=== PATIENT | female | born 1945 | race Caucasian/White ===

== ENCOUNTER 2022-03-29 13:17 | Inpatient (IN) ==
--- NOTE | 2022-03-29 13:19 | Emergency Department Note ---
HPI General Chief complaint: Extremity Injury, Lower Stated complaint: Rt hip pain Time Seen by Provider: 03/29/22 13:19 Source: patient Mode of arrival: ambulatory Limitations: no limitations History of Present Illness HPI Narrative: 76-year-old female with past medical history of CAD with a stent and hypertension presenting with right hip pain after fall. Patient was in the garden and tripped, falling onto her right side. Denies hitting her head or losing consciousness. She was unable to get up and currently has pain in her right hip that shoots down her right leg. Not on anticoagulation. She reports a history of right total knee replacement with an orthopedic physician in [place]. Denies numbness or weakness in the leg. No headache, vision changes, back pain, or other extremity pain. Related Data Allergies Allergy/AdvReac Type Severity Reaction Status Date / Time meperidine [From DEMEROL] Allergy Unknown SWELLING Verified 03/29/22 13:21 Review of Systems ROS ROS Narrative: Narrative: Constitutional: Denies fever ENT ED: Denies throat pain Cardiovascular: Denies chest pain Respiratory: Denies shortness of breath or cough Gastrointestinal: Denies abdominal pain, nausea or vomiting Genitourinary: Denies dysuria Musculoskeletal: Denies back pain Integumentary: Denies rash Neurological: Denies headache or dizziness Psychiatric: Denies anxiety Endocrine: Denies fatigue Hematological/Lymphatic: Denies easy bruising PFSH Narrative Patient History Narrative: Narrative: Medical/Surgical/Family History All Active Problems (Updated 03/29/22 @ 15:45 by Satya De Dios MD) CAD (coronary artery disease) (Acute) Essential hypertension (Acute) Fracture of femoral neck, right, closed (Acute) Exam Narrative Narrative: Narrative: General Limitations: no limitations General appearance: Present alert and other (Appears uncomfortable) Head Head: Present atraumatic and normocephalic Eye Eye: Present normal appearance, PERRL and EOMI; Absent scleral icterus, conjunctival injection or nystagmus ENT ENT: Present mucous membranes moist Neck Neck: Present normal inspection, full ROM and trachea midline; Absent tenderness Chest Chest: Present symmetric chest wall rise Respiratory Respiratory: Present normal lung sounds bilaterally; Absent respiratory distress, rales/crackles, wheezes, stridor or accessory muscle use Cardiovascular Cardiovascular: Present regular rate and normal rhythm; Absent systolic murmur or diastolic murmur Expanded Lower Extremity Hip/Pelvis: Present other (Tenderness over the lateral right hip with internal rotation.) Knee: Present normal inspection; Absent tenderness Ankle: Present normal inspection; Absent tenderness Neurovascular/Tendon: Present normal capillary refill; Absent pulse deficit, motor deficit or sensory deficit Back Back: Present normal inspection; Absent spinous process tenderness Neurological Neurological: Present alert, oriented X3 and CN II-XII intact; Absent motor sensory deficit Psychiatric Psychiatric: Present normal affect and normal mood Skin Skin: Present warm (WNL) and dry Course Consultations Consultation #1: Dr. Tony, orthopedic surgery Time: 15:25 Consultation #2: Dr. Whitley, hospitalist Time: 15:35 Vital Signs Vital signs: Vital Signs Temperature 97.2 F 03/29/22 13:17 Pulse Rate 81 03/29/22 13:17 Respiratory Rate 18 03/29/22 13:17 Pulse Oximetry (%) 96 03/29/22 13:17 Oxygen Delivery Method 03/29/22 13:17 Temperature 97.2 F 03/29/22 13:17 Pulse Rate 82 03/29/22 15:31 Respiratory Rate 18 03/29/22 13:17 Blood Pressure 133/80 03/29/22 15:31 Pulse Oximetry (%) 96 03/29/22 15:31 Oxygen Delivery Method 03/29/22 14:41 Oxygen Flow Rate (L/min) 4 03/29/22 14:41 [facility] Narrative Medical decision making narrative: 76-year-old female presenting with right hip pain after a fall. Not on anticoagulation and no other injuries. Sub-anesthetic dose of ketamine and 4mg IV morphine given for pain. Will obtain x-rays and reevaluate. X-ray shows an acute right femoral neck fracture. Labs appear stable, EKG with no ischemic changes. Chest x-ray with no acute findings. Patient continued to have severe hip pain so she was given 0.5 mg of IV Dilaudid. Her saturations subsequently dropped into the 80s so she was placed on O2 via nasal cannula. She remains awake, alert, and hemodynamically stable. I spoke with Dr. Tony of orthopedics who will consult on the patient. Patient endorsed to Dr. Whitley for admission. Lab Data Lab results reviewed: Yes I reviewed the patient's lab results. Result diagrams: 03/29/22 13:40 03/29/22 13:40 Labs: Lab Results 03/29/22 03/29/22 Range/Units 13:40 13:40 WBC 9.8 (4.5-11.0) K/mcL RBC 4.47 (3.59-5.38) M/mcL Hgb 14.0 (11.2-15.7) g/dL Hct 44.0 (34.1-44.9) % MCV 98.4 (80.0-100.0) fL MCH 31.3 (26.0-34.0) pg MCHC 31.8 (31.0-36.0) g/dL RDW 12.1 (11.5-14.5) % Plt Count 225 (140-440) K/mcL MPV 11.0 H (7.4-10.4) fL Immature Gran % (Auto) 0.5 (0.0-0.5) % Neut % (Auto) 75.0 (38.0-78.0) % Lymph % (Auto) 16.9 (15.5-49.0) % [place] % (Auto) 7.0 (1.0-12.0) % Eos % (Auto) 0.4 (0.0-7.0) % Baso % (Auto) 0.2 (0.0-2.0) % Lymph # (Auto) 1.65 (1.50-4.80) K/mcL [place] # (Auto) 0.69 (0.10-0.90) K/mcL Eos # (Auto) 0.04 (0.00-0.70) K/mcL Baso # (Auto) 0.02 (0.00-0.30) K/mcL Immature Gran # 0.05 (0.00-0.05) K/mcl Absolute Neutrophils 7.39 (1.80-8.00) K/mcL Sodium 140 (133-145) mmol/L Potassium 3.8 (3.3-5.1) mmol/L Chloride 107 (96-108) mmol/L Carbon Dioxide 21 L (22-30) mmol/L Anion Gap 12.0 (8.0-16.0) BUN 9 (8-23) mg/dL Creatinine 0.8 (0.6-1.1) mg/dL GFR Calculation 71 Glucose 109 H (70-105) mg/dL Calcium 9.0 (8.6-10.4) mg/dL Total Bilirubin 0.8 (0.1-1.0) mg/dL AST 25 (<32) U/L ALT 19 (<40) U/L Alkaline Phosphatase 84 (39-117) U/L Total Protein 6.3 (5.9-8.4) gm/dL Albumin 4.1 (3.2-5.2) gm/dL Globulin 2.2 (2.2-3.7) gm/dL Albumin/Globulin Ratio 1.9 (1.0-2.3) Radiology Data Radiology results reviewed: Yes I reviewed the patient's radiology results. Radiology results narrative: Ordering Physician:Satya De Dios M.D. Date of Service:03/29/22 Procedure(s):XR hip RT comp 2VW HISTORY: Right hip pain FINDINGS: There is an acute transverse fracture of the femoral neck. There is varus angulation. The shaft of the femur is retracted proximally. The hip joint space is normal in width and alignment and there is no underlying arthritis. Left hip is normal. There is moderate arthritis in the facet joints at L4-5. Atherosclerotic plaques are seen in the aorta and iliac arteries. IMPRESSION: Acute right femoral neck fracture Interpreted and Authenticated by: Akbar Monsalve 03/29/22 Ordering Physician:Satya De Dios M.D. Date of Service:03/29/22 Procedure(s):XR chest 1V portable HISTORY: Preop to repair fractured right hip FINDINGS: The lungs are clear and normally expanded. There is no pneumonia, mass or congestive heart failure. Heart size is normal. Aorta is mildly tortuous and there is a moderate amount of plaque in the aortic arch. Comparison with the prior exam from 02/20/13 shows little change except for progression of the atherosclerosis in the aorta. IMPRESSION: Normal exam Interpreted and Authenticated by: Akbar Monsalve 03/29/22 EKG Data EKG #1: EKG attestation: Yes I reviewed and interpreted this EKG. and Yes There are no EKG findings of acute coronary syndrome EKG results narrative: Sinus rhythm at [address] elevation or depression Interpretation: no acute changes Discharge Plan Patient/Caregiver Discharge Instructions Pt seen by CARDIOTHORACIC ICU RN/PA only: No Clinical Impression: Fracture of femoral neck, right, closed Patient Disposition: Xfer As Inpt ([facility]) Condition: Fair Follow up with: Tarsha Her ARNP [Primary Care Provider] -
[2022-03-29] MEDS ORDERED: morphine 4 MG/ML VIAL IV ONE (13:29)
[2022-03-29] MEDS ORDERED: KETAMINE 10 MG/ML ML IV ONE (13:29)
[2022-03-29] MEDS ORDERED: LORazepam 2 MG/ML VIAL IV ONE (14:00)
[2022-03-29 14:09] LABS: Basophils # (Auto) 0.02 K/mcL (0.00-0.30); Basophils % (Auto) 0.2 % (0.0-2.0); Eosinophils # (Auto) 0.04 K/mcL (0.00-0.70); Eosinophils % (Auto) 0.4 % (0.0-7.0); Lymphocytes # (Auto) 1.65 K/mcL (1.50-4.80); Lymphocytes % (Auto) 16.9 % (15.5-49.0); Mean Cell Volume 98.4 fL (80.0-100.0); Mean Corpuscular HGB Conc 31.8 g/dL (31.0-36.0); Monocytes # (Auto) 0.69 K/mcL (0.10-0.90); Platelet Count 225 K/mcL (140-440); RBC 4.47 M/mcL (3.59-5.38); Red Cell Distribution Width 12.1 % (11.5-14.5); WBC 9.8 K/mcL (4.5-11.0)
[2022-03-29] MEDS ORDERED: HYDROmorphone 1 MG/ML SYRINGE IV ONE (14:25)
[2022-03-29 14:31] LABS: ALT/SGPT 19 U/L (<40); AST/SGOT 25 U/L (<32); Albumin 4.1 gm/dL (3.2-5.2); Albumin/Globulin Ratio 1.9 (1.0-2.3); Alkaline Phosphatase 84 U/L (39-117); Bilirubin,Total 0.8 mg/dL (0.1-1.0); Blood Urea Nitrogen 9 mg/dL (8-23); Carbon Dioxide 21 mmol/L (22-30); Chloride 107 mmol/L (96-108); Globulin 2.2 gm/dL (2.2-3.7); Glomerular Filtration Rate 71; Glucose 109 mg/dL (70-105)
--- NOTE | 2022-03-29 14:34 | XRay Report ---
HISTORY: Right hip pain FINDINGS: There is an acute transverse fracture of the femoral neck. There is varus angulation. The shaft of the femur is retracted proximally. The hip joint space is normal in width and alignment and there is no underlying arthritis. Left hip is normal. There is moderate arthritis in the facet joints at L4-5. Atherosclerotic plaques are seen in the aorta and iliac arteries. IMPRESSION: Acute right femoral neck fracture Interpreted and Authenticated by: Akbar Monsalve 03/29/22
--- NOTE | 2022-03-29 14:35 | XRay Report ---
HISTORY: Preop to repair fractured right hip FINDINGS: The lungs are clear and normally expanded. There is no pneumonia, mass or congestive heart failure. Heart size is normal. Aorta is mildly tortuous and there is a moderate amount of plaque in the aortic arch. Comparison with the prior exam from 02/20/13 shows little change except for progression of the atherosclerosis in the aorta. IMPRESSION: Normal exam Interpreted and Authenticated by: Akbar Monsalve 03/29/22
--- NOTE | 2022-03-29 15:42 | Internal Med History&Physical ---
HPI History of Present Illness Patient information: Note initiated : 03/29/22 at 3:35 pm Service Date, if different from initiated Date: [] Patient: Pérez Gr a 76 y/o F admitted on for Rt hip pain. Chief Complaint: [] Chief complaint: fall History of present illness: Ms. Gr is a 76 year old F history of CAD status post 1 stent placement, essential hypertensions, presenting with mechanical fall. Earlier today when she was tightening a post in her house, she misstepped and fell with landing on her right hip. She used her right hand to protect her head so no head injury was reported. She denies any chest pain palpitations shortness of breath or loss of consciousness. She was complaining of 10 out of 10 sharp and dull constant pain radiating from her right hip to the right knee all the way to the right ankle. The pain was reduced to 5 out of 10 after ketamine was given in the ED. Orthopedic surgeons Dr. Tony was consulted who plans to take patient to the OR this evening. Constitutional Constitutional: Absent chills, excessive sweating, fatigue, fever(s) or weakness EENT Eyes: Absent blurry vision, change in vision, loss of vision or other visual disturbances Ears: Absent decreased hearing or tinnitus Nose, mouth and throat: Absent abnormal hearing, dry mouth, headache(s), nasal congestion or sore throat Cardiovascular Cardiovascular: Absent chest pain, chest pain at rest, edema, irregular heart rhythm or palpatations Respiratory Respiratory: Absent cough, dyspnea or wheezing Gastrointestinal Gastrointestinal: Absent abdominal pain, constipation, diarrhea, nausea or vomiting Musculoskeletal Musculoskeletal: Absent back pain, deformity, limited range of motion, muscle cramps, muscle weakness or numbness Additional comments: Right hip pain Integumentary Integumentary: Absent lesions, rash or wounds Neurological Neurological: Absent focal weakness, headache(s) or numbness Psychiatric Psychiatric: Absent anxiety, depression or hallucinations PFSH PFSH All Active Problems (Updated 03/29/22 @ 15:39 by Griffin Whitley MD) CAD (coronary artery disease) (Acute) Essential hypertension (Acute) Fracture of femoral neck, right, closed (Acute) MEDS/ALLERGIES Home Medications and Allergies Allergies Allergy/AdvReac Type Severity Reaction Status Date / Time meperidine [From DEMEROL] Allergy Unknown SWELLING Verified 03/29/22 13:21 EXAM Constitutional Vitals: Temp Pulse Resp BP Pulse Ox O2 Del Method O2 Flow Rate 36.2 C 83 18 141/85 82 L 4 03/29/22 13:17 03/29/22 14:35 03/29/22 13:17 03/29/22 14:35 03/29/22 14:39 03/29/22 14:41 03/29/22 14:41 General appearance: cooperative and no acute distress Head Head exam: Present atraumatic and normocephalic Eye Eye exam: Present EOMI and PERRL ENT ENT exam: Present mucous membranes moist, normal exam and normal external ear exam Neck Neck exam: Present normal inspection; Absent lymphadenopathy, tenderness or thyromegaly Respiratory Respiratory exam: Absent accessory muscle use, respiratory distress or wheezes Cardiovascular Cardiovascular exam: Present normal rate and rhythm; Absent JVD GI/Abdominal GI/Abdominal exam: Present normal bowel sounds and soft; Absent organomegaly or tenderness Extremities Exam Extremities exam: Present normal capillary refill, normal inspection and tenderness; Absent full ROM Additional comments: Active and passive ROMs of the right hip limited by pain Tenderness to palpation Neurological Exam Neurological exam: Present alert, CN II-XII intact and oriented X3; Absent motor sensory deficit Psychiatric Psychiatric exam: Present normal affect and normal mood; Absent anxious or depressed Skin Skin exam: Present dry and intact DATA Data Completed and Pending Labs: Labs from last 24 hours 03/29/22 03/29/22 13:40 13:40 WBC 9.8 RBC 4.47 Hgb 14.0 Hct 44.0 MCV 98.4 MCH 31.3 MCHC 31.8 RDW 12.1 Plt Count 225 MPV 11.0 H Immature Gran % (Auto) 0.5 Neut % (Auto) 75.0 Lymph % (Auto) 16.9 [place] % (Auto) 7.0 Eos % (Auto) 0.4 Baso % (Auto) 0.2 Lymph # (Auto) 1.65 [place] # (Auto) 0.69 Eos # (Auto) 0.04 Baso # (Auto) 0.02 Immature Gran # 0.05 Absolute Neutrophils 7.39 Sodium 140 Potassium 3.8 Chloride 107 Carbon Dioxide 21 L Anion Gap 12.0 BUN 9 Creatinine 0.8 GFR Calculation 71 Glucose 109 H Calcium 9.0 Total Bilirubin 0.8 AST 25 ALT 19 Alkaline Phosphatase 84 Total Protein 6.3 Albumin 4.1 Globulin 2.2 Albumin/Globulin Ratio 1.9 A/P Assessment and plan (1) Fracture of femoral neck, right, closed: Status: Acute (2) Essential hypertension: Status: Acute (3) CAD (coronary artery disease): Status: Acute Narrative A/P Narrative: Assessment and Plans: 1. Right femoral neck fracture, closed: Inpatient med surg Orthopedic surgeons Dr. Tony was consulted who plans to take patient to the OR this evening NPO and bedrest NS@100cc/hr Tylenol PRN fever or mild pain Oxycodone PRN moderate pain Morphine IV PRN severe pain Physical therapy Occupational therapy 2. h/o CAD: Hold antiplatelets/anticoagulants in preparation for surgery for her hip fracture 3. Essential HTN: Control right hip pain, see #1 Hydralazine 10mg IV q4-6hr PRN SBP>=180 and/or DBP>=110mmHg GI ppx: not currently indicated DVT ppx: SCDs Code status: Full Prognosis: stable Disposition: inpatient med surg; PT OT Time Spent With Patient Time: Total time spent is greater than 50% in coordination of care (as documented) at patient's floor/unit and/or counseling patient: Total time spent with greater than 50% in coordination of care (as documented) at patient's floor/unit and/or counseling patient:: 50 - 70 minutes
[2022-03-29] MEDS ORDERED: METHOCARBAMOL 1,000 MG/10 ML VIAL IV ONE (15:49)
[2022-03-29] MEDS ORDERED: ONDANSETRON 4 MG/2 ML VIAL IV ONE (15:49)
[2022-03-29] MEDS ORDERED: HYDROmorphone 0.5 MG/0.5 ML SYRINGE IV ONE (16:10)
--- NOTE | 2022-03-29 16:25 | Consultation ---
DATE OF CONSULTATION: 03/29/2022 CHIEF COMPLAINT: Right hip pain. HISTORY OF PRESENT ILLNESS: This is a 76-year-old female who presents to the emergency department with complaint of right hip pain. The patient reports a fall earlier today, where she tripped over a hose. She denies any syncope or dizziness prior to her fall and denies any other associated injuries. She does have tenderness in the hip radiating to her anterior thigh. REVIEW OF SYSTEMS: A 10-point review of systems was reviewed and negative other than what is stated in the HPI. ALLERGIES: MEPERIDINE, her reaction is swelling. PAST MEDICAL HISTORY: Coronary artery disease, hypertension. MEDICATIONS: Aspirin 81 mg daily. PHYSICAL EXAMINATION: VITAL SIGNS: Blood pressure 141/85, pulse 83, respirations 18, temperature is 36.2 degrees Celsius, pulse ox 82% on 4 liters of oxygen. HEAD: Atraumatic, normocephalic. ENT: Pupils are equal, round and reactive to light and accommodation. ENT is otherwise unremarkable. NECK: Supple, without tenderness or lymphadenopathy. CHEST: Lungs were clear to auscultation bilaterally without any wheezes, rhonchi, rales. HEART: Regular rate and rhythm without murmur. EXTREMITIES: The right lower extremity is externally rotated and shortened on inspection. She does have diffuse swelling throughout the hip without any other deformity, ecchymosis or erythema present. Passive and active range of motion of the right hip is limited due to severe tenderness in the hip. There is tenderness in the groin posterolaterally throughout the hip on palpation. Right lower extremity is otherwise neurovascularly intact. NEUROLOGIC: The patient is alert and oriented x3, without any focal deficits. IMAGING: Radiographs of the right hip reveal a right displaced femoral neck fracture. PLAN: After discussing with the patient treatment options, we will plan to proceed with a right hip hemiarthroplasty. Risks, complications and possible limitations were discussed with the patient. She would like to proceed with surgery. Dr. Tony was consulted and agrees with this plan. The patient will be admitted for operative treatment of the right hip fracture and likely will stay with us for 1 to 2 days. She will also be followed by Dr. Griffin Whitley throughout her stay, as well as Orthopedics. The patient agrees with this plan and her questions were addressed. RSM:nando Job ID: [id number] Doc ID: [id number] Roger Vaughan PA-C
[2022-03-29] MEDS ORDERED: ACETAMINOPHEN 325 MG TABLET PO PRN (17:43)
[2022-03-29] MEDS ORDERED: 0.9 % SODIUM CHLORIDE 1,000 ML IV SCH (17:43)
[2022-03-29] MEDS ORDERED: oxyCODONE HCL 5 MG TABLET PO PRN (17:43)
[2022-03-29] MEDS ORDERED: IPRATROPIUM/ALBUTEROL 3 ML AMPUL.NEB NEB PRN ×2 (17:43→19:08)
[2022-03-29] MEDS ORDERED: morphine 4 MG/ML VIAL IV PRN (17:43)
[2022-03-29] MEDS ORDERED: traZODone HCL 50 MG TABLET PO PRN (17:43)
[2022-03-29] MEDS ORDERED: ONDANSETRON 4 MG/2 ML VIAL IV PRN ×2 (17:43→19:08)
[2022-03-29] MEDS ORDERED: hydrALAZINE 20 MG/ML VIAL IV PRN (17:43)
[2022-03-29] MEDS ORDERED: LIDOCAINE HCL/PF 100 MG/5 ML SYRINGE IV ONE (18:30)
[2022-03-29] MEDS ORDERED: ceFAZolin 2 GM in DEXTROSE 5% IN WATER 50 ML IV SCH ×2 (18:30→19:45)
[2022-03-29] MEDS ORDERED: ONDANSETRON 4 MG/2 ML VIAL ONE (18:30)
[2022-03-29] MEDS ORDERED: DEXAMETHASONE 10 MG/ML VIAL ONE (18:30)
[2022-03-29] MEDS ORDERED: KETAMINE 50 MG/ML Syringe (ANEST) IV ONE (18:30)
[2022-03-29] MEDS ORDERED: MAGNESIUM SULFATE 2 GM/50 ML BAG IV ONE (18:30)
[2022-03-29] MEDS ORDERED: PROPOFOL 200 MG/20 ML VIAL IV ONE (18:30)
[2022-03-29] MEDS ORDERED: ceFAZolin 1 GM VIAL ONE (18:38)
[2022-03-29] MEDS ORDERED: PROMETHAZINE 25 MG/ML VIAL IV PRN (19:08)
[2022-03-29] MEDS ORDERED: fentaNYL 100 MCG/2 ML VIAL IV PRN (19:08)
[2022-03-29] MEDS ORDERED: LACTATED RINGERS 250 ML IV PRN (19:08)
[2022-03-29] MEDS ORDERED: ACETAMINOPHEN 1,000 MG/100 ML BAG IV ONE ×2 (19:08→20:03)
[2022-03-29] MEDS ORDERED: NALOXONE HCL 0.4 MG/ML VIAL IV PRN (19:08)
[2022-03-29] MEDS ORDERED: diphenhydrAMINE 50 MG/ML VIAL IV PRN (19:08)
[2022-03-29] MEDS ORDERED: LACTATED RINGERS 1,000 ML IV SCH (19:15)
[2022-03-29] MEDS ORDERED: MAGNESIUM HYDROXIDE 30 ML ORAL.SUSP PO PRN (19:32)
[2022-03-29] MEDS ORDERED: BISACODYL 10 MG SUPP.RECT PR PRN (19:32)
[2022-03-29] MEDS ORDERED: POLYETHYLENE GLYCOL 3350 17 GM PACKET PO PRN (19:32)
[2022-03-29] MEDS ORDERED: FLEETS ADULT ENEMA PR PRN (19:32)
[2022-03-29] MEDS ORDERED: ROPIVACAINE HCL/PF 20 ML VIAL IJ ONE (19:46)
[2022-03-29] MEDS: DEXTROSE 5%-1/2NS 1,000 ML IV SCH (20:50)
[2022-03-29] MEDS ORDERED: DOCUSATE SODIUM 100 MG CAPSULE PO SCH (21:00)
[2022-03-29] MEDS ORDERED: SENNOSIDES 1 TABLET PO SCH (21:00)
[2022-03-29] MEDS: DOCUSATE SODIUM 100 MG CAPSULE PO SCH (21:11)
[2022-03-29] MEDS ORDERED: 0.9 % SODIUM CHLORIDE 10 ML SYRINGE IV SCH (22:00)
[2022-03-29] MEDS: SENNOSIDES 1 TABLET PO SCH (22:11)
[2022-03-29] MEDS: ASPIRIN 81 MG TAB.CHEW PO SCH (22:11)
[2022-03-29] MEDS: 0.9 % SODIUM CHLORIDE 10 ML SYRINGE IV SCH (22:12)
[2022-03-29] MEDS: HYDROCODONE/APAP 7.5/325MG TABLET PO PRN (22:47)
[2022-03-30] MEDS: ceFAZolin 1 GM VIAL IV SCH ×2 (02:15→10:11)
[2022-03-30] MEDS: ONDANSETRON 4 MG ODT TABLET SL PRN ×3 (02:32→16:56)
[2022-03-30] MEDS: 0.9 % SODIUM CHLORIDE 10 ML SYRINGE IV SCH ×3 (04:13→20:30)
[2022-03-30] MEDS: HYDROCODONE/APAP 7.5/325MG TABLET PO PRN ×4 (04:16→20:28)
[2022-03-30 06:15] LABS: Basophils # (Auto) 0.01 K/mcL (0.00-0.30); Basophils % (Auto) 0.1 % (0.0-2.0); Eosinophils # (Auto) 0 K/mcL (0.00-0.70); Eosinophils % (Auto) 0 % (0.0-7.0); Hematocrit 39.7 % (34.1-44.9); Hemoglobin 12.6 g/dL (11.2-15.7); Lymphocytes # (Auto) 0.67 K/mcL (1.50-4.80); Lymphocytes % (Auto) 4.8 % (15.5-49.0); Mean Cell Volume 98.3 fL (80.0-100.0); Mean Corpuscular HGB Conc 31.7 g/dL (31.0-36.0); Mean Platelet Volume 11.8 fL (7.4-10.4); Monocytes # (Auto) 0.39 K/mcL (0.10-0.90); Monocytes % (Auto) 2.8 % (1.0-12.0); Neutrophils % (Auto) 91.9 % (38.0-78.0); Platelet Count 201 K/mcL (140-440); RBC 4.04 M/mcL (3.59-5.38); Red Cell Distribution Width 12.1 % (11.5-14.5)
[2022-03-30 06:40] LABS: ALT/SGPT 17 U/L (<40); AST/SGOT 23 U/L (<32); Albumin 3.6 gm/dL (3.2-5.2); Albumin/Globulin Ratio 1.7 (1.0-2.3); Alkaline Phosphatase 77 U/L (39-117); Bilirubin,Total 0.4 mg/dL (0.1-1.0); Blood Urea Nitrogen 7 mg/dL (8-23); Calcium 8.1 mg/dL (8.6-10.4); Carbon Dioxide 20 mmol/L (22-30); Chloride 103 mmol/L (96-108); Globulin 2.1 gm/dL (2.2-3.7); Glomerular Filtration Rate 71; Glucose 191 mg/dL (70-105)
--- NOTE | 2022-03-30 06:51 | Brief Operative Note ---
Brief Operative Note Date of procedure: 03/30/22 Pre-op diagnosis: Right hip fracture Post-op diagnosis: same Procedure: hemiarthroplasty Grafts/Implants: Yes Anesthesia: GETA Findings: stable hip Complications: none Surgeon: Reynold Tony Coffee Taster: Roger Vaughan Estimated blood loss (cc): 200 Specimens Removed/Pathology: none sent Condition: stable Operative Note Operative Note: Name of the operating practitioner/proceduralist: [Surgeon] Assistants: [medical assistant secretary] Procedure performed: [Procedure] Preoperative diagnosis: [pre-op dx] Postoperative diagnosis: [Post-op dx] Findings: [detail] Specimens removed: [none] Estimated blood loss (cc): [#] Any complications: [details] Detailed account of the findings at surgery: [details] Details of the surgical technique: [details]
--- NOTE | 2022-03-30 06:52 | General Surgery Progress Note ---
SUBJECTIVE Subjective Patient information: Note initiated : 03/30/22 at 6:51 am Service Date, if different from initiated Date: [] Patient: Pérez Gr 76 y/o F admitted on 03/29/22 for Rt hip pain. Chief Complaint: [] Principal diagnosis: hip fracture Constitutional Vitals: Vital Signs Temp Pulse Resp BP Pulse Ox O2 Del Method O2 Flow Rate 97.2 F 75 16 125/71 92 2 03/30/22 02:50 03/30/22 02:50 03/30/22 02:50 03/30/22 02:50 03/30/22 04:24 03/30/22 04:24 03/30/22 02:50 Period Temp Pulse Resp BP Sys/Campos Pulse Ox O2 Del Method O2 Flow Rate Last 24 Hr 96.8 F-98.0 F 61-96 11-24 87-173/49-118 82-99 Nasal Cannula- Room Air 2-6 Intake and Output 03/29/22 03/30/22 03/30/22 21:59 05:59 13:59 Intake Total 2049 120 Output Total 100 600 Balance 1950 -480 Weight 171 lb 8 oz Intake & Output: Intake & Output 03/29/22 03/30/22 03/30/22 21:59 05:59 13:59 Intake Total 2049 120 Output Total 100 600 Balance 1950 -480 Weight 171 lb 8 oz Intake: IV 150 Ancef 2 gm In Dextrose 5% in 50 Water 50 ml @ 100 mls/hr IV PREOP IVETTE Rx#:[id number] Oral 120 IV - Manual Only 1900 Output: Void Amount 600 Estimated Blood Loss 100 Other: Urine Appearance Clear Urine Color Bright Yellow Urine Odor Normal Extremities Exam Extremities exam: Present neurovascular intact A/P Assessment and plan (1) Fracture of femoral neck, right, closed: Status: Acute Plan mobilize with PT dc planning Narrative Plan of Treatment: mobilize Time Spent With Patient Time: Total time spent is greater than 50% in coordination of care (as documented) at patient's floor/unit and/or counseling patient:
--- NOTE | 2022-03-30 08:05 | XRay Report ---
HISTORY: Postop right hip hemiarthroplasty for hip fracture FINDINGS: There is a well-positioned right hip prosthesis. No new fracture has developed. There are no abnormal soft tissue calcifications. IMPRESSION: Well-positioned right hip prosthesis Interpreted and Authenticated by: Akbar Monsalve 03/30/22
[2022-03-30] MEDS: ASPIRIN 81 MG TAB.CHEW PO SCH ×2 (08:38→20:28)
[2022-03-30] MEDS: OLMESARTAN MEDOXOMIL 20 MG TABLET PO SCH (08:38)
[2022-03-30] MEDS: POTASSIUM CHLORIDE 10 MEQ TABLET PO SCH (08:38)
[2022-03-30] MEDS: ATORVASTATIN 40 MG TABLET PO SCH (08:38)
[2022-03-30] MEDS: amLODIPine 5 MG TABLET PO SCH (08:38)
[2022-03-30] MEDS: DOCUSATE SODIUM 100 MG CAPSULE PO SCH ×2 (08:38→20:30)
[2022-03-30] MEDS: DEXTROSE 5%-1/2NS 1,000 ML IV SCH ×2 (08:40→19:13)
[2022-03-30] MEDS ORDERED: NON FORMULARY MEDICATION 1 DOSE MISCELL (Aspirin 81 mg Tablet) PO SCH (09:00)
--- NOTE | 2022-03-30 13:06 | Internal Med Progress Note ---
SUBJECTIVE Subjective Patient information: Note initiated : 03/30/22 at 1:01 pm Service Date, if different from initiated Date: [] Patient: Pérez Gr a 76 y/o F admitted on 03/29/22 for Rt hip pain. Chief Complaint: [] Principal diagnosis: hip fracture Interval history: Ms. Gr is a 76 year old F history of CAD status post 1 stent placement, essential hypertensions, presenting with mechanical fall. Earlier today when she was tightening a post in her house, she misstepped and fell with landing on her right hip. She used her right hand to protect her head so no head injury was reported. She denies any chest pain palpitations shortness of breath or loss of consciousness. She was complaining of 10 out of 10 sharp and dull constant pain radiating from her right hip to the right knee all the way to the right ankle. The pain was reduced to 5 out of 10 after ketamine was given in the ED. Orthopedic surgeons Dr. Tony was consulted who plans to take patient to the OR this evening. 03/30: s/p right hip hemiarthroplasty by Dr. Tony on 03/29. Currently c/o mild right hip pain. c/o lightheadedness and dizziness when ambulates. No bowel movement since surgery. Physical therapist recs. home with home health when medically cleared. Continue narcotics PRN pain control. Constitutional Vitals: Vital Signs Temp Pulse Resp BP Pulse Ox O2 Del Method O2 Flow Rate 36.8 C 74 18 124/64 93 2 03/30/22 12:00 03/30/22 12:00 03/30/22 12:00 03/30/22 12:00 03/30/22 12:00 03/30/22 12:00 03/30/22 02:50 Period Temp Pulse Resp BP Sys/Campos Pulse Ox O2 Del Method O2 Flow Rate Last 24 Hr 36.0 C-36.9 C 61-96 11-24 87-173/49-118 82-99 Nasal Cannula- Room Air 2-6 Intake and Output 03/29/22 03/30/22 03/30/22 21:59 05:59 13:59 Intake Total 2050 120 300 Output Total 100 600 Balance 1950 -480 300 Weight 77.791 kg Intake & Output: Intake & Output 03/29/22 03/30/22 03/30/22 21:59 05:59 13:59 Intake Total 2049 120 300 Output Total 100 600 Balance 1950 -480 300 Weight 77.791 kg Intake: IV 150 300 Dextrose 5%-1/2Ns IV Solution 1 300 ,000 ml @ 75 mls/hr IV .[id number] [facility] Rx#:[id number] Ancef 2 gm In Dextrose 5% in 50 Water 50 ml @ 100 mls/hr IV PREOP [facility] Rx#:[id number] Oral 120 IV - Manual Only 1900 Output: Void Amount 600 Estimated Blood Loss 100 Other: Urine Appearance Clear Urine Color Bright Yellow Urine Odor Normal Head Head exam: Present atraumatic and normal inspection Eye Eye exam: Present normal appearance ENT ENT exam: Present mucous membranes moist, normal exam and normal external ear exam Neck Neck exam: Present normal inspection Respiratory Respiratory exam: Present normal respiratory exam Cardiovascular Cardiovascular exam: Present normal rate and rhythm GI/Abdominal GI/Abdominal exam: Present normal bowel sounds Extremities Exam Extremities exam: Absent full ROM or normal inspection Additional comments: Right lateral hip covered by surgical dressing. Active and passive ROMs limited by pain Back Exam Back exam: Present normal inspection Neurological Exam Neurological exam: Present alert and oriented X3 Skin Skin exam: Present intact and warm OBJ DATA Labs CBC & Chem 7: 03/30/22 05:20 03/30/22 05:20 Labs: Abnormal Lab Results 03/30/22 03/30/22 03/29/22 05:20 05:20 13:40 WBC 14.0 H MPV 11.8 H Neut % (Auto) 91.9 H Lymph % (Auto) 4.8 L Lymph # (Auto) 0.67 L Immature Gran # 0.06 H Absolute Neutrophils 12.96 H Carbon Dioxide 20 L 21 L BUN 7 L Glucose 191 H 109 H Calcium 8.1 L Total Protein 5.7 L Globulin 2.1 L 03/29/22 13:40 WBC MPV 11.0 H Neut % (Auto) Lymph % (Auto) Lymph # (Auto) Immature Gran # Absolute Neutrophils Carbon Dioxide BUN Glucose Calcium Total Protein Globulin Meds: Medications Acetaminophen (Acetaminophen 325 Mg Tablet) 650 mg PO Q6HP PRN; Protocol PRN Reason: Per Pain Protocol/Fever > 101 Hydrocodone Bitart/Acetaminophen (Hydrocodone/Apap 7.5/325mg Tablet) 0 tab PO Q4HP PRN; Protocol PRN Reason: Per Pain Protocol Last Admin: 03/30/22 11:48 Dose: 1 tab Albuterol/Ipratropium (Ipratropium/Albuterol 3 Ml Ampul.Neb) 3 ml NEB Q4HRT PRN PRN Reason: Wheezing Amlodipine Besylate (Amlodipine 5 Mg Tablet) 5 mg PO QDAY [facility] Last Admin: 03/30/22 08:38 Dose: 5 mg Aspirin (Aspirin 81 Mg Tab.Chew) 81 mg PO BID [facility] Last Admin: 03/30/22 08:38 Dose: 81 mg Atorvastatin Calcium (Atorvastatin 40 Mg Tablet) 80 mg PO QDAY [facility] Last Admin: 03/30/22 08:38 Dose: 80 mg Bisacodyl (Bisacodyl 10 Mg Supp.Rect) 10 mg TX Q2-3DAYS PRN PRN Reason: Constipation Docusate Sodium (Docusate Sodium 100 Mg Capsule) 100 mg PO BID [facility] Last Admin: 03/30/22 08:38 Dose: 100 mg Hydralazine HCl (Hydralazine 20 Mg/Ml Vial) 10 mg IV Q4-6HP PRN PRN Reason: Hypertension Dextrose/Sodium Chloride (Dextrose 5%-1/2ns Iv Solution) 1,000 mls @ 75 mls/hr IV .[id number] [facility] Last Infusion: 03/30/22 10:42 Dose: 76 mls/hr Magnesium Hydroxide (Magnesium Hydroxide 30 Ml Oral.Susp) 30 ml PO BIDP PRN PRN Reason: Constipation Morphine Sulfate (Morphine 4 Mg/Ml Vial) 4 mg IV Q4HP PRN; Protocol PRN Reason: Per Pain Protocol Olmesartan (Olmesartan Medoxomil 20 Mg Tablet) 40 mg PO DAILY [facility] Last Admin: 03/30/22 08:38 Dose: 40 mg Ondansetron HCl (Ondansetron 4 Mg Odt Tablet) 4 mg SL Q4HP PRN; Protocol PRN Reason: Nausea And Vomiting Last Admin: 03/30/22 08:42 Dose: 4 mg Oxycodone HCl (Oxycodone Hcl 5 Mg Tablet) 10 mg PO Q4HP PRN; Protocol PRN Reason: Per Pain Protocol Polyethylene Glycol (Polyethylene Glycol 3350 17 Gm Packet) 17 gm PO DAILYP PRN PRN Reason: Constipation Potassium Chloride (Potassium Chloride 10 Meq Tablet) 10 meq PO [facility] Last Admin: 03/30/22 08:38 Dose: 10 meq Senna (Sennosides 1 Tablet) 2 tab PO HS [facility] Last Admin: 03/29/22 22:11 Dose: 2 tab Sodium Biphosphate/Sodium Phosphate (Fleets Adult Enema) 1 dose TX Q3-4DAYS PRN PRN Reason: Constipation Sodium Chloride (0.9 % Sodium Chloride 10 Ml Syringe) 10 ml IV Q8 [facility] Last Admin: 03/30/22 04:13 Dose: 10 ml Trazodone HCl (Trazodone Hcl 50 Mg Tablet) 25 mg PO HSP PRN PRN Reason: Insomnia A/P Assessment and plan (1) Fracture of femoral neck, right, closed: Status: Acute (2) Essential hypertension: Status: Acute (3) CAD (coronary artery disease): Status: Acute Narrative A/P Narrative: Assessment and Plans: 1. Right femoral neck fracture, closed: Inpatient med surg s/p right hip hemiarthroplasty by Dr. Tony on 03/29. Currently c/o mild right hip pain Resume regular diet Saline lock Tylenol PRN fever or mild pain Oxycodone PRN moderate pain Morphine IV PRN severe pain Aspirin 81mg PO BID Physical therapy-->recs. home with home health Occupational therapy 2. h/o CAD: Hold antiplatelets/anticoagulants in preparation for surgery for her hip fracture 3. Essential HTN: Control right hip pain, see #1 Amlodipine Olmesartan Hydralazine 10mg IV q4-6hr PRN SBP>=180 and/or DBP>=110mmHg GI ppx: not currently indicated DVT ppx: SCDs Code status: Full Prognosis: stable Disposition: inpatient med surg; Physical therapy-->recs. home with home health Plan of Treatment: mobilize Time Spent With Patient Time: Total time spent is greater than 50% in coordination of care (as documented) at patient's floor/unit and/or counseling patient: Total time spent with greater than 50% in coordination of care (as documented) at patient's floor/unit and/or counseling patient:: 35 - 50 minutes QUALITY VTE Deep Vein Thrombosis/Pulmonary Embolism Present on Admission: No
[2022-03-30] MEDS ORDERED: ONDANSETRON 4 MG/2 ML VIAL IV PRN (18:53)
[2022-03-30] MEDS ORDERED: ONDANSETRON 4 MG/2 ML VIAL ONE (19:11)
[2022-03-30] MEDS ORDERED: METHOCARBAMOL 750 MG TABLET PO SCH (19:30)
[2022-03-30] MEDS: SENNOSIDES 1 TABLET PO SCH (20:30)
[2022-03-30] MEDS: diphenhydrAMINE 25 MG CAPSULE PO PRN (23:28)
[2022-03-30] MEDS ORDERED: diphenhydrAMINE 25 MG CAPSULE ONE (23:36)
[2022-03-31] MEDS ORDERED: METHOCARBAMOL 500 MG TABLET PO PRN (01:00)
[2022-03-31] MEDS: 0.9 % SODIUM CHLORIDE 10 ML SYRINGE IV SCH (05:38)
[2022-03-31] MEDS: HYDROCODONE/APAP 7.5/325MG TABLET PO PRN ×2 (05:41→11:52)
[2022-03-31 07:22] LABS: ALT/SGPT 11 U/L (<40); AST/SGOT 24 U/L (<32); Albumin 3.1 gm/dL (3.2-5.2); Albumin/Globulin Ratio 1.5 (1.0-2.3); Alkaline Phosphatase 63 U/L (39-117); Bilirubin,Total 0.4 mg/dL (0.1-1.0); Blood Urea Nitrogen 10 mg/dL (8-23); Calcium 8.2 mg/dL (8.6-10.4); Carbon Dioxide 23 mmol/L (22-30); Chloride 102 mmol/L (96-108); Glomerular Filtration Rate 62; Glucose 125 mg/dL (70-105)
--- NOTE | 2022-03-31 07:37 | Operative Note ---
DATE OF OPERATION: 03/29/2022 PREOPERATIVE DIAGNOSIS: Right hip femoral neck/subcapital fracture. POSTOPERATIVE DIAGNOSIS: Right hip femoral neck/subcapital fracture. OPERATION PROPOSED: Right hip hemiarthroplasty. OPERATION PERFORMED: Same. SURGEON: Reynold Tony M.D. INSPECTOR OPTICAL INSTRUMENT: Roger Vaughan PA-C. This provider's expertise and technical skill were required throughout the case. The PA assisted with preoperative coordination, intraoperative retraction, wound closure, and dressing and splint application, as well as postoperative documentation and care coordination. INDICATIONS: This is a lady has had a right hip fracture, in need of operative treatment. DESCRIPTION OF PROCEDURE: Informed consent was obtained. She was taken to the operating room and provided with appropriate anesthetic and prophylactic antibiotics. She was carefully positioned. Her hip was prepped sterilely. A standard posterior approach to the hip was performed. I dissected through the fascia of the iliotibial band and released short external rotators. The hip capsule was cut and T'd. The femoral neck was refined. I then sequentially broached. I impacted an ACTIS stem and this was mated with an appropriately sized head ball and a 1.5 neck insert. This was reduced into place and was quite stable. Wounds were irrigated extensively. The hip capsule was closed as was the iliotibial band, 2-0 inverted deep dermal and chi in the skin. The procedure was tolerated well. No complications. ESTIMATED BLOOD LOSS: 100 mL. GDD:suraj Job ID: [id number] Doc ID: [id number] Reynold Tony MD
[2022-03-31] MEDS: ATORVASTATIN 40 MG TABLET PO SCH (08:47)
[2022-03-31] MEDS: POTASSIUM CHLORIDE 10 MEQ TABLET PO SCH (08:47)
[2022-03-31] MEDS: ASPIRIN 81 MG TAB.CHEW PO SCH (08:47)
[2022-03-31] MEDS: DOCUSATE SODIUM 100 MG CAPSULE PO SCH (08:47)
[2022-03-31] MEDS: amLODIPine 5 MG TABLET PO SCH (08:49)
[2022-03-31] MEDS: OLMESARTAN MEDOXOMIL 20 MG TABLET PO SCH (08:49)
[2022-03-31 09:12] LABS: Basophils # (Auto) 0.01 K/mcL (0.00-0.30); Basophils % (Auto) 0.1 % (0.0-2.0); Eosinophils # (Auto) 0.09 K/mcL (0.00-0.70); Eosinophils % (Auto) 0.6 % (0.0-7.0); Hematocrit 34.9 % (34.1-44.9); Hemoglobin 11.2 g/dL (11.2-15.7); Lymphocytes # (Auto) 2.42 K/mcL (1.50-4.80); Lymphocytes % (Auto) 16.1 % (15.5-49.0); Mean Cell Volume 99.1 fL (80.0-100.0); Mean Corpuscular HGB Conc 32.1 g/dL (31.0-36.0); Mean Platelet Volume 11.9 fL (7.4-10.4); Neutrophils % (Auto) 74.7 % (38.0-78.0); Platelet Count 173 K/mcL (140-440); RBC 3.52 M/mcL (3.59-5.38); Red Cell Distribution Width 12.7 % (11.5-14.5)
--- NOTE | 2022-03-31 10:07 | Discharge Summary ---
Discharge Provider Provider IMPORTANT FOLLOW-UP INFORMATION FOR PCP: Patient information: Note initiated : 03/31/22 at 10:03 am Service Date, if different from initiated Date: [] Patient: Pérez Gr 76 y/o F admitted on 03/29/22 for Rt hip pain. Chief Complaint: [] Date of admission: 03/29/22 16:52 Discharge date: 03/31/22 Primary care physician: Tarsha Her Attending physician on admission: Griffin Whitley Consults: 03/29/22 Consult to Physician [CONS] Stat Comment: Consulting Provider: Reynold Tony Reason For Exam: Physician to Consult Consult to Physician [CONS] Stat Comment: Consulting Provider: Griffin Whitley Reason For Exam: Physician to Consult Attending physician on discharge: Griffin Whitley COURSE Hospital Course Hospital course: Ms. Gr is a 76 year old F history of CAD status post 1 stent placement, essential hypertensions, presenting with mechanical fall. Earlier today when she was tightening a post in her house, she misstepped and fell with landing on her right hip. She used her right hand to protect her head so no head injury was reported. She denies any chest pain palpitations shortness of breath or loss of consciousness. She was complaining of 10 out of 10 sharp and dull constant pain radiating from her right hip to the right knee all the way to the right ankle. The pain was reduced to 5 out of 10 after ketamine was given in the ED. Orthopedic surgeons Dr. Tony was consulted who plans to take patient to the OR this evening. 03/30: s/p right hip hemiarthroplasty by Dr. Tony on 03/29. Currently c/o mild right hip pain. c/o lightheadedness and dizziness when ambulates. No bowel movement since surgery. Physical therapist recs. home with home health when medically cleared. Continue narcotics PRN pain control. 03/31: Reached clinical stability, decision made to discharge patient home with home health service arranged. Follow-up recommended with orthopedic surgeons also made for the patient's. Prescriptions sent to pharmacy/given to the patient's. All questions answered prior to patient being physically discharged. Discharge diagnosis: Right hip fracture. Time Spent with Patient Time attestation: Total time spent providing and/or coordinating discharge services: Time spent: Less than 30 minutes EXAM Constitutional Vitals: Temp Pulse Resp BP Pulse Ox O2 Del Method O2 Flow Rate 36.5 C 76 14 114/64 93 2 03/31/22 06:52 03/31/22 06:52 03/31/22 06:52 03/31/22 06:52 03/31/22 06:52 03/31/22 06:52 03/30/22 02:50 General appearance: cooperative and no acute distress Head Head exam: Present atraumatic and normocephalic Eye Eye exam: Present EOMI and PERRL ENT ENT exam: Present mucous membranes moist, normal exam and normal external ear exam Neck Neck exam: Present normal inspection; Absent lymphadenopathy, tenderness or thyromegaly Respiratory Respiratory exam: Absent accessory muscle use, respiratory distress or wheezes Cardiovascular Cardiovascular exam: Present normal rate and rhythm; Absent JVD GI/Abdominal GI/Abdominal exam: Present normal bowel sounds and soft; Absent organomegaly or tenderness Extremities Exam Extremities exam: Present full ROM and normal capillary refill; Absent normal inspection or tenderness Additional comments: Right lateral hip covered by surgical dressing Neurological Exam Neurological exam: Present alert, CN II-XII intact and oriented X3; Absent motor sensory deficit Psychiatric Psychiatric exam: Present normal affect and normal mood; Absent anxious or depressed Skin Skin exam: Present dry and intact Discharge Data Data Completed and Pending Labs on day of discharge: Labs from last 24 hours 03/31/22 03/31/22 03/31/22 08:40 05:35 05:35 WBC 15.0 H TNP RBC 3.52 L TNP Hgb 11.2 TNP Hct 34.9 TNP MCV 99.1 TNP MCH 31.8 TNP MCHC 32.1 TNP RDW 12.7 TNP Plt Count 173 TNP MPV 11.9 H TNP Immature Gran % (Auto) 0.5 TNP Neut % (Auto) 74.7 TNP Lymph % (Auto) 16.1 TNP [place] % (Auto) 8.0 TNP Eos % (Auto) 0.6 TNP Baso % (Auto) 0.1 TNP Lymph # (Auto) 2.42 TNP [place] # (Auto) 1.20 H TNP Eos # (Auto) 0.09 TNP Baso # (Auto) 0.01 TNP Immature Gran # 0.07 H TNP Absolute Neutrophils 11.31 H TNP Sodium 133 Potassium 3.8 Chloride 102 Carbon Dioxide 23 Anion Gap 8.0 BUN 10 Creatinine 0.9 GFR Calculation 62 Glucose 125 H Calcium 8.2 L Total Bilirubin 0.4 AST 24 ALT 11 Alkaline Phosphatase 63 Total Protein 5.1 L Albumin 3.1 L Globulin 2.0 L Albumin/Globulin Ratio 1.5 Discharge Plan Patient/Caregiver Discharge Instructions Activity: increase activity as tolerated Diet: Regular Diet Prescriptions: New methocarbamol 500 mg Tablet 500 mg PO TIDP PRN (Reason: Muscle Spasm) Qty: 20 0RF hydrocodone-acetaminophen 7.5-325 mg Tablet 1 tab PO Q4HP PRN (Reason: Per Pain Protocol) Qty: 20 0RF Continued atorvastatin 80 mg tablet 1 tab PO QDAY potassium chloride 10 mEq capsule, extended release 1 cap PO QDAY amlodipine 5 mg tablet 1 tab PO QDAY telmisartan 80 mg tablet 0.5 tab PO QDAY aspirin 81 mg Tablet 81 mg PO QDAY Follow Up Plan Follow up with: Tarsha Her ARNP [Primary Care Provider] - Roger Vaughan PA-C [Physician Rail Signal Worker] - 04/15/22 10:40 am Patient Disposition: Home Health Service Plan of Treatment: mobilize Prognosis: Fair Rehab Potential: Good I certify that the patient requires SNF services: No Overall status at discharge: patient is progressing back to baseline Discharge Orders: Discharge Order (Routine); Ordered 03/31/22 Ordered By: Griffin VEE VTE Deep Vein Thrombosis/Pulmonary Embolism Present on Admission: No
[2022-03-31] MEDS: DEXTROSE 5%-1/2NS 1,000 ML IV SCH (10:33)
[2022-03-31] MEDS: diphenhydrAMINE 25 MG CAPSULE PO PRN (10:36)
--- NOTE | 2022-04-01 13:57 | EKG ---
[facility] Test Date: 2022-03-29 Pat Name: Pérez Gr Department: ED Room: Gender: Female Time Recorder: : 1945 Requested By: Satya De Dios Order Number: [id number] Reading MD: Lino Cadena Measurements Intervals [place] Rate: 77 P: 76 [place]: 172 QRS: -1 QRSD: 90 T: 52 QT: 435 QTc: 493 Interpretive Statements Sinus rhythm Probable anteroseptal infarct, old Electronically Signed On 04-01-2022 13:55:53 PDT by Lino Cadena /store/[email or web address]/[id number]
== END 2022-03-31 13:40 | disposition home health service (06) | DRG 522 ==
LOC: ED 13:17 → MEDSUR 16:52
PROVIDERS: ADMIT Internal Medicine; ATTEND Internal Medicine